=== PATIENT | male | born 1995 | race Hispanic/Latino ===

== ENCOUNTER 2020-01-21 18:42 | Emergency (ER) | payer SELFPAY ==
[~2020-01-21] VITALS: Ht 165.1 cm; Wt 78.0 kg
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
[2020-01-21 21:53] VITALS: BP 143/76
== END 2020-01-21 21:56 | disposition home or self-care (01) ==
LOC: ER 18:42
DX: S80.01XA Contusion of right knee, initial encounter (principal); S43.51XA Sprain of right acromioclavicular joint, initial encounter; V43.52XA Car driver injured in collision with other type car in traffic accident, initial encounter; Y92.488 Other paved roadways as the place of occurrence of the external cause
CPT/HCPCS: 99283

== ENCOUNTER 2024-06-02 12:28 | Emergency (ER) | payer OTHER ==
[~2024-06-02] VITALS: Ht 165.1 cm; Wt 78.0 kg
[2024-06-02 13:09] VITALS: PULSE 88; RESP 15; TEMP 98.4; O2SAT 100
[2024-06-02] MEDS: HYDROCODONE/APAP 7.5MG-325MG 1 EA TAB PO STA (13:40)
[2024-06-02] MEDS ORDERED: METHOCARBAMOL750 MG PO (14:09)
== END 2024-06-02 14:25 | disposition home or self-care (01) ==
LOC: ER 12:40
DX: M79.621 Pain in right upper arm (principal); S46.211A Strain of muscle, fascia and tendon of other parts of biceps, right arm, initial encounter; Y04.0XXA Assault by unarmed brawl or fight, initial encounter; Y92.89 Other specified places as the place of occurrence of the external cause
CPT/HCPCS: 99283